=== PATIENT | female | born 1960 | race Caucasian/White ===

== ENCOUNTER 2017-08-22 17:10 | Emergency (ER) | payer BC, OTHER ==
[~2017-08-22] VITALS: Ht 172.7 cm; Wt 108.9 kg
[~2017-08-22 17:10] MED LIST: ASPI-630 PO; CLIN300C8 PO; FLUT16SP NS; MELO15TA23 PO; OMEP40CA5 PO; RAMI2.5C PO
[2017-08-22] MEDS ORDERED: IV NORMAL SALINE 1000ML BAG 1,000 ML IV SCH (19:13)
[2017-08-22] MEDS ORDERED: ONDANSETRON PF 4 MG/2 ML VIAL. IV ONE (19:15)
[2017-08-22 19:23] LABS: BILIRUBIN,URINE SMALL (NEG); GLUCOSE,URINE NEGATIVE (NEG); NITRITE,URINE NEGATIVE (NEG); PH,URINE 5.5; PROTEIN,URINE NEGATIVE (NEG-TRACE)
[2017-08-22 19:26] LABS: BASO # 0.1 x10^3/uL (0.0-0.2); BASO % 1 % (0-3); EOS % 5 % (0-3); HEMATOCRIT 43.9 % (36.0-47.0); LYMPH % 38 % (24-48); MEAN CORPUSCULAR HEMOGLOBIN 33 pg (25-35); MEAN CORPUSCULAR HGB CONC 34 g/dL (31-37); MEAN CORPUSCULAR VOLUME 95 fL (79-100); MONO % 9 % (0-9); NEUT % 48 % (31-73); PLATELET COUNT 263 x10^3/uL (140-400); RED BLOOD COUNT 4.61 x10^6/uL (3.50-5.40); RED CELL DISTRIBUTION WIDTH 13.5 % (11.5-14.5)
[2017-08-22 19:37] LABS: ANION GAP 10 (6-14); BLOOD UREA NITROGEN 19 mg/dL (7-20); CALCIUM 8.9 mg/dL (8.5-10.1); CARBON DIOXIDE 25 mmol/L (21-32); CHLORIDE 104 mmol/L (98-107); CREATININE 0.8 mg/dL (0.6-1.0); GFR 74.2; GLUCOSE 105 mg/dL (70-99); POTASSIUM 3.7 mmol/L (3.5-5.1); SODIUM 139 mmol/L (136-145)
[2017-08-22 19:42] LABS: ALBUMIN 3.7 g/dL (3.4-5.0); ALK PHOS 69 U/L (46-116); ALT (SGPT) 21 U/L (14-59); AST (SGOT) 15 U/L (15-37); DIRECT BILIRUBIN < 0.1 mg/dL (0.0-0.2); TOTAL BILIRUBIN 0.2 mg/dL (0.2-1.0); TOTAL PROTEIN 7.5 g/dL (6.4-8.2)
[2017-08-22 19:45] LABS: BACTERIA,URINE MODERATE /HPF (0-FEW); SQUAMOUS EPITHELIAL CELL,UR MANY /LPF
[2017-08-22] MEDS: HYDROmorphone 2 MG/ML VIAL IV/SQ PRN ×2 (20:05→21:29)
[2017-08-22] MEDS ORDERED: IOHEXOL 300 MG/ML 100ML VIAL. IV ONE (20:15)
[2017-08-22] MEDS ORDERED: CONTRAST GIVEN MC PRN (20:15)
--- NOTE | 2017-08-22 20:48 | PHYS DOC ---
Past Medical History Past Medical History: COPD, Hypertension, Other Additional Past Medical Histor: ULCERS, varicose veins, blood clots in june veins Past Surgical History: Tubal ligation, Other Additional Past Surgical Histo: varicose veins Alcohol Use: None Drug Use: None Adult General Chief Complaint Chief Complaint: ABDOMINAL PAIN HPI HPI 57-year-old female presenting the emergency department today with abdominal pain . She describes the pain as intermittent worse with movement throbbing aching pain that is been present for about 24-48 hours. It is so she with a little bit of nausea without any vomiting. It also radiates into her hip and buttocks. She denies any hematuria polyuria or dysuria. She denies fevers or chills at home. Review of systems is negative for chest pain shortness of breath fevers or chills. All other review of systems is negative unless otherwise noted in history of present illness. ED course: 57-year-old female presenting the emergency department today with abdominal pain. Patient is afebrile upon arrival. Saturating well with a normal heart rate. Pertinent physical exam findings:Soft nontender abdomen without rebound tenderness or guarding present. Negative McBurneys point. Negative Peña sign. No ecchymosis present. Otherwise the remainder the exam is unremarkable. Blood work obtained along with CT the abdomen pelvis which is unremarkable for acute pathology. IV fluids administered. The patient was then discharged home in stable condition to follow up with their primary care physician over the next 2-3 days. They were to return if their symptoms worsened or if they were concerned for any reason. [id number] discharge instructions and return precautions were given. Patient's questions were answered to their satisfaction. Patient is comfortable plan. Review of Systems Review of Systems SEE ABOVE. Current Medications Current Medications Current Medications Medications (Trade) Dose Ordered Sig/Ralph Start Time Stop Time Status Last Admin Dose Admin Hydromorphone HCl (Dilaudid) 0.5 mg PRN Q15MIN PRN 08/22/17 19:15 08/23/17 19:14 Info (Do NOT chart on this entry -- for MONITORING) 1 each PRN DAILY PRN 08/22/17 20:15 08/24/17 20:14 Iohexol (Omnipaque 300 Mg/ml) 75 ml 1X ONCE 08/22/17 20:15 08/22/17 20:16 DC 08/22/17 20:36 75 ML Ketorolac Tromethamine (Toradol) 30 mg 1X ONCE 08/22/17 21:00 08/22/17 21:01 DC Ondansetron HCl (Zofran) 4 mg 1X ONCE 08/22/17 19:15 08/22/17 19:17 DC 08/22/17 20:04 4 MG Sodium Chloride 1,000 ml @ 1,000 mls/hr Q1H 08/22/17 19:13 08/22/17 20:12 DC 08/22/17 20:03 1,000 MLS/HR Allergies Allergies Allergies Coded Allergies Type Severity Reaction Last Updated Verified Penicillins Allergy Mild Hives 02/14/14 Yes Physical Exam Physical Exam SEE ABOVE Constitutional: Well developed, well nourished, no acute distress, non-toxic appearance. [] HENT: Normocephalic, atraumatic, bilateral external ears normal, oropharynx moist, no oral exudates, nose normal. [] Eyes: PERRLA, EOMI, conjunctiva normal, no discharge. [] Neck: Normal range of motion, no tenderness, supple, no stridor. [] Cardiovascular:Heart rate regular rhythm, no murmur [] Lungs & Thorax: Bilateral breath sounds clear to auscultation [] Abdomen: Bowel sounds normal, soft, no tenderness, no masses, no pulsatile masses. [] Skin: Warm, dry, no erythema, no rash. [] Back: No tenderness, no CVA tenderness. [] Extremities: No tenderness, no cyanosis, no clubbing, ROM intact, no edema. [] Neurologic: Alert and oriented X 3, normal motor function, normal sensory function, no focal deficits noted. [] Psychologic: Affect normal, judgement normal, mood normal. [] Current Patient Data Vital Signs Vital Signs Date Time Temp Pulse Resp B/P (MAP) Pulse Ox O2 Delivery O2 Flow Rate FiO2 08/22/17 18:25 97.7 90 17 165/93 (117) 97 Room Air 97.7 Lab Values Laboratory Tests Test 08/22/17 18:30 08/22/17 19:15 08/22/17 20:06 Urine Collection Type Unknown Urine Color Stacia Urine Clarity Clear Urine pH 5.5 Urine Specific Fonda >=1.030 Urine Protein Negative mg/dL (NEG-TRACE) Urine Glucose (UA) Negative mg/dL (NEG) Urine Ketones (Stick) Trace mg/dL (NEG) Urine Blood Negative (NEG) Urine Nitrite Negative (NEG) Urine Bilirubin Small (NEG) Urine Urobilinogen Dipstick 1.0 mg/dL (0.2 mg/dL) Urine Leukocyte Esterase Negative (NEG) Urine RBC 11-20 /HPF (0-2) Urine WBC 1-4 /HPF (0-4) Urine Squamous Epithelial Cells Many /LPF Urine Bacteria Moderate /HPF (0-FEW) Urine Hyaline Casts Few /HPF Urine Mucus Marked /LPF White Blood Count 8.0 x10^3/uL (4.0-11.0) Red Blood Count 4.61 x10^6/uL (3.50-5.40) Hemoglobin 15.0 g/dL (12.0-15.5) Hematocrit 43.9 % (36.0-47.0) Mean Corpuscular Volume 95 fL (79-100) Mean Corpuscular Hemoglobin 33 pg (25-35) Mean Corpuscular Hemoglobin Concent 34 g/dL (31-37) Red Cell Distribution Width 13.5 % (11.5-14.5) Platelet Count 263 x10^3/uL (140-400) Neutrophils (%) (Auto) 48 % (31-73) Lymphocytes (%) (Auto) 38 % (24-48) Monocytes (%) (Auto) 9 % (0-9) Eosinophils (%) (Auto) 5 % (0-3) H Basophils (%) (Auto) 1 % (0-3) Neutrophils # (Auto) 3.8 x10^3uL (1.8-7.7) Lymphocytes # (Auto) 3.0 x10^3/uL (1.0-4.8) Monocytes # (Auto) 0.7 x10^3/uL (0.0-1.1) Eosinophils # (Auto) 0.4 x10^3/uL (0.0-0.7) Basophils # (Auto) 0.1 x10^3/uL (0.0-0.2) Sodium Level 139 mmol/L (136-145) Potassium Level 3.7 mmol/L (3.5-5.1) Chloride Level 104 mmol/L (98-107) Carbon Dioxide Level 25 mmol/L (21-32) Anion Gap 10 (6-14) Blood Urea Nitrogen 19 mg/dL (7-20) Creatinine 0.8 mg/dL (0.6-1.0) Estimated GFR (Cockcroft-Gault) 74.2 Glucose Level 105 mg/dL (70-99) H Calcium Level 8.9 mg/dL (8.5-10.1) Total Bilirubin 0.2 mg/dL (0.2-1.0) Direct Bilirubin < 0.1 mg/dL (0.0-0.2) Aspartate Amino Transferase (AST) 15 U/L (15-37) Alanine Aminotransferase (ALT) 21 U/L (14-59) Alkaline Phosphatase 69 U/L (46-116) Troponin I Quantitative < 0.017 ng/mL (0.000-0.055) Total Protein 7.5 g/dL (6.4-8.2) Albumin 3.7 g/dL (3.4-5.0) Lipase 98 U/L (73-393) Lactic Acid Level 0.6 mmol/L (0.4-2.0) Laboratory Tests 08/22/17 19:15 Laboratory Tests 08/22/17 19:15 EKG EKG [] Radiology/Procedures Radiology/Procedures [] Course & Med Decision Making Course & Med Decision Making Pertinent Labs and Imaging studies reviewed. (See chart for details) [] Dragon Disclaimer Dragon Disclaimer This electronic medical record was generated, in whole or in part, using a voice recognition dictation system. Departure Departure Impression: Primary Impression: Abdominal pain Disposition: HOME, SELF-CARE Condition: STABLE Referrals: FINA LARA MD (PCP) Additional Instructions: Thank you for allowing us to participate in your care today. Followup with your primary care physician in 3 days if your symptoms do not improve. Call your Primary Doctor tomorrow and inform them of your visit today. If you do not have a primary care provider you can ask for a list of our primary care providers. Return to the emergency department you have any new or concerning findings. This should be evaluated by the primary care physician and any necessary consulting services for continued management within a few days after discharge. Return to emergency room if you have any new or concerning symptoms including but not limited to fever, chills, nausea, vomiting, intractable pain, any new rashes, chest pain, shortness of air, uncontrolled bleeding, difficulty breathing, and/or vision loss. EVELINE BRADEN MD Aug 22, 2017 20:48
--- NOTE | 2017-08-22 20:57 | RAD ---
CT ABD PELV W/ IV CONTRST ONLY dated 08/22/2017 8:35 PM Indication:severe RLQ pain since Wednesday, Comparison: No comparison is available. Technique: Following injection of 75 mL of Omnipaque 300 IV, images were obtained through the abdomen and pelvis. No oral contrast was given. One or more of the following individualized dose reduction techniques were utilized for this examination: 1. Automated exposure control 2. Adjustment of the mA and/or kV according to patient size 3. Use of iterative reconstruction technique Findings: The liver has a prominent Davina's lobe. It is otherwise unremarkable. The spleen, pancreas, adrenal glands, and kidneys are normal in appearance. There is diverticulosis of the colon diffusely without associated inflammatory changes. There is no evidence of bowel obstruction. The appendix is normal. No free fluid or adenopathy is seen. The uterus is unremarkable. No pelvic mass is seen. IMPRESSION: There is diverticulosis of the colon diffusely without focal inflammatory changes to suggest diverticulitis. The study is otherwise unremarkable. The appendix is normal. Electronically signed by: Lucía Ba MD (08/22/2017 8:54 PM) [facility]
[2017-08-22] MEDS ORDERED: KETOROLAC 30 MG/ML INJ. IV ONE (21:00)
[2017-08-22 21:18] VITALS: BP 114/78
--- NOTE | 2017-08-23 06:41 | EKG ---
[facility] [address] [place] [address] Test Date: 2017-08-22 Test Time: 19:50:54 Pat Name: ROJAS NESBITT Department: Room: Gender: F Sample Steamer: : 1960 Requested By: EVELINE BRADEN Order Number: [id number] Reading MD: Jesus Urias MD Measurements Intervals [place] Rate: 73 P: -16 MO: 148 QRS: 26 QRSD: 88 T: 15 QT: 374 QTc: 416 Interpretive Statements SINUS RHYTHM Electronically Signed On 08-23-2017 10:27:55 [employer] MANAGER by Jesus Urias MD
== END 2017-08-22 21:33 | disposition home or self-care (01) ==
LOC: ER 17:10
DX: R10.31 Right lower quadrant pain (principal); R11.0 Nausea; J44.9 Chronic obstructive pulmonary disease, unspecified; I10 Essential (primary) hypertension; Z88.0 Allergy status to penicillin
CPT/HCPCS: 36415; 74177; 80048; 80076; 81001; 83605; 83690; 84484; 85025; 87086; 93005; 96361; 96374; 99285; J2405; J7030; Q9967

== ENCOUNTER 2017-08-28 11:23 | Emergency (ER) | payer OTHER ==
[~2017-08-28] VITALS: Ht 172.7 cm; Wt 104.3 kg
[2017-08-28 11:30] VITALS: BP 161/93
--- NOTE | 2017-08-28 11:42 | PHYS DOC ---
Past Medical History Past Medical History: COPD, Hypertension, Other Additional Past Medical Histor: ULCERS, varicose veins, blood clots in june veins Past Surgical History: Tubal ligation, Other Additional Past Surgical Histo: varicose veins Alcohol Use: None Drug Use: None Adult General Chief Complaint Chief Complaint: ABDOMINAL PAIN HPI HPI Patient is a 57 year old extremely pleasant, female who presents with right-sided hip/abdominal pain. She states his been going on for greater than 2 weeks. She was actually seen here last Wednesday and had a CT scan of her abdomen pelvis and blood work performed. CT scan showed diverticulosis without any other acute abnormalities. Her urine showed contamination. She was discharged home and told her nothing was wrong with the pain is been getting worse. She states is made worse when she bends over or tries to lift her right leg. She states the pain is in the posterior aspect of her hip and radiates around to the front of her hip. She states she can't sleep on her right side of her body and blood pressure on or hip. She states that she has to sleep on the left side or on her back. She was seen by her primary care physician on Wednesday and told to follow-up with GI doctor. She's been taking Tylenol without any relief. She is very upset because she felt like she didn't get very good treatment in the emergency department and does not want any blood work or x- rays done this time because she just had stuff done a week ago and on Wednesday her primary care's office. She denies any dysuria, she denies any abdominal pain , she denies any fevers chills nausea or vomiting. Review of Systems Review of Systems Constitutional: Denies fever or chills [] Eyes: Denies change in visual acuity, redness, or eye pain [] HENT: Denies nasal congestion or sore throat [] Respiratory: Denies cough or shortness of breath [] Cardiovascular: No additional information not addressed in HPI [] GI: Denies abdominal pain, nausea, vomiting, bloody stools or diarrhea [] : Denies dysuria or hematuria [] Musculoskeletal: Denies back pain, positive for right hip pain Integument: Denies rash or skin lesions [] Neurologic: Denies headache, focal weakness or sensory changes [] Endocrine: Denies polyuria or polydipsia [] All other systems were reviewed and found to be within normal limits, except as documented in this note. Allergies Allergies Allergies Coded Allergies Type Severity Reaction Last Updated Verified Penicillins Allergy Mild Hives 02/14/14 Yes Physical Exam Physical Exam Constitutional: Well developed, well nourished, no acute distress, non-toxic appearance. [] HENT: Normocephalic, atraumatic, bilateral external ears normal, oropharynx moist, no oral exudates, nose normal. [] Eyes: PERRLA, EOMI, conjunctiva normal, no discharge. [] Neck: Normal range of motion, no tenderness, supple, no stridor. [] Cardiovascular:Heart rate regular rhythm, no murmur [] Lungs & Thorax: Bilateral breath sounds clear to auscultation [] Abdomen: Bowel sounds normal, soft, no abdominal tenderness, no masses, no pulsatile masses. [] Skin: Warm, dry, no erythema, no rash. [] Back: No midline back tenderness, no CVA tenderness. [] Extremities: Tender palpation on the right posterior buttocks, pain increases with flexion of hip on the right side, no cyanosis, no clubbing, ROM intact, no edema. [] Neurologic: Alert and oriented X 3, normal motor function, normal sensory function, no focal deficits noted. [] Psychologic: Affect normal, judgement normal, mood normal. [] Current Patient Data Vital Signs Vital Signs Date Time Temp Pulse Resp B/P (MAP) Pulse Ox O2 Delivery O2 Flow Rate FiO2 08/28/17 11:30 97.9 91 20 161/93 (115) 98 Room Air 97.9 EKG EKG [] Radiology/Procedures Radiology/Procedures [] Impressions: Muscle pain on the right hip Course & Med Decision Making Course & Med Decision Making Pertinent Labs and Imaging studies reviewed. (See chart for details) She does not want any lab work or x-rays performed. Her exam is consistent with muscle spasm of her hip extensors. At this point we talked about adding Flexeril and trying it every 8 hours or prior to going to bed and watching for side effects such as sleepiness and excessive tiredness. I've told her she can take it less frequently than every 8 hours or break the tablets in half in order to reduce the side effects. Patient states she is willing to try this and a prescription for 10 mg every 8 hours #30 of Flexeril was written the patient is being discharged. She is instructed to return back to ER follow-up with primary care physician if her symptoms get worse or do not improve. The CT scan did not show any acute abnormalities of her hip or inside her right lower quadrant. I suspect for symptoms get worse or do not improve that perhaps in the future she could repeat the CAT scan or dedicated films of her right hip. Dragon Disclaimer Dragon Disclaimer This electronic medical record was generated, in whole or in part, using a voice recognition dictation system. Departure Departure Impression: Primary Impression: Hip pain Disposition: HOME, SELF-CARE Condition: STABLE Referrals: FINA LARA MD (PCP) Patient Instructions: Muscle Strain Additional Instructions: You were seen in the emergency department and you likely have a muscle spasm in your right hip that's causing your discomfort. You can try Flexeril as we discussed. It can make you sleepy so avoid alcohol and other medicines that can add to the sleepiness. Please don't drive your car while taking these medicines. If it makes her too sleepy you can take it prior to going to bed or cut the tablets in half. If you develop worsening pain, fevers, or other concerns please return back to emergency department or follow-up to primary care physician. Scripts Cyclobenzaprine Hcl (CYCLOBENZAPRINE HCL) 10 Mg Tablet 1 TAB PO TID Y for MUSCLE SPASMS, #30 TAB Prov: KASSIDY RAYMOND MD 08/28/17 KASSIDY RAYMOND MD Aug 28, 2017 11:42
[2017-08-28] MEDS ORDERED: CYCL10TA2 PO (12:35)
== END 2017-08-28 12:40 | disposition home or self-care (01) ==
LOC: ER 11:23
DX: M25.551 Pain in right hip (principal); R10.9 Unspecified abdominal pain; J44.9 Chronic obstructive pulmonary disease, unspecified; I10 Essential (primary) hypertension; Z88.0 Allergy status to penicillin
CPT/HCPCS: 99283

== ENCOUNTER → 2017-09-08 | Outpatient (CLI) | payer OTHER ==
[2017-08-28 11:30] VITALS: BP 161/93
[~2017-09-08] MED LIST changes: +CYCL10TA2 PO
--- NOTE | 2017-09-08 15:47 | KCIC ---
EXAM: Right hip, 2 views. HISTORY: Pain. COMPARISON: None. FINDINGS: Frontal and frog-leg views of the right hip are obtained. There is no fracture, dislocation or subluxation. IMPRESSION: No acute osseous finding. Electronically signed by: Izabela May MD (09/08/2017 2:27 PM) [facility]
== END | disposition home or self-care (01) ==
LOC: KCIC 14:08
PROVIDERS: ATTEND Family Medicine
DX: M25.551 Pain in right hip (principal)
CPT/HCPCS: 73502

== ENCOUNTER → 2017-09-10 | Outpatient (CLI) | payer OTHER ==
[2017-08-28 11:30] VITALS: BP 161/93
--- NOTE | 2017-09-10 18:05 | KCIC ---
Bilateral digital screening mammograms: Reason for examination: Routine screening. Comparison is made to previous studies dated 09/09/2016 and 10/01/2012. Interpretation is made with the benefit of CAD. The skin and nipples show no abnormalities. No abnormal lymph nodes are seen. The breast parenchyma is predominantly fatty. (Breast density: Category A.) There are no dominant masses, suspicious calcifications or architectural distortions. A few benign-appearing calcifications are seen. Impression: No evidence of malignancy. Recommend routine screening. BI-RADS Category 2: Benign. "Our facility is accredited by the [employer] Mammography Program." This patient's information has been entered into a reminder system for the patient to be notified with the results of her examination and a target date for the next mammogram. Electronically signed by: Stacy Juárez MD (09/10/2017 6:02 PM) [id number]
== END | disposition home or self-care (01) ==
LOC: KCIC MAMMO 08:52
PROVIDERS: ATTEND Family Medicine
DX: Z12.31 Encounter for screening mammogram for malignant neoplasm of breast (principal)
CPT/HCPCS: G0202; 77067

== ENCOUNTER → 2017-09-15 | Outpatient (CLI) | payer OTHER ==
[2017-08-28 11:30] VITALS: BP 161/93
--- NOTE | 2017-09-15 11:16 | KCIC ---
Indication: Right lower quadrant abdominal pain. Study is limited due to patient large body habitus. The pancreas and aorta were poorly visualized. The liver is normal in size. No discrete liver mass is detected. The gallbladder is without stones or sludge. No wall thickening or biliary ductal dilatation is seen. The spleen and left kidney was very poorly visualized. The right kidney is unremarkable. There is no ascites. IMPRESSION: Limited study, as described. No gross abnormality is detected. Electronically signed by: Peewee Ponce MD (09/15/2017 11:13 AM) [id number]
== END | disposition home or self-care (01) ==
LOC: KCIC US 09:38
PROVIDERS: ATTEND Family Medicine
DX: R10.31 Right lower quadrant pain (principal)
CPT/HCPCS: 76700

== ENCOUNTER → 2018-11-15 | Outpatient (CLI) | payer OTHER ==
[~2018-11-15] MED LIST changes: -RAMI2.5C PO; +RAMI2.5C2 PO
--- NOTE | 2018-11-15 11:35 | KCIC ---
MRI of the lumbar spine without contrast 11/15/2018 CLINICAL HISTORY: Chronic low back pain with bilateral leg numbness and weakness. TECHNIQUE: Unenhanced T1-weighted, T2-weighted and inversion recovery sagittal and T1-weighted and T2-weighted axial images of the lumbar spine were obtained. FINDINGS: Comparison study is dated 02/17/2016. Minimal S-shaped curvature of the thoracolumbar spine is seen. Degenerative signal changes are seen involving the L3-4, L4-5 and L5-S1 discs. The marrow signal of the visualized bony structures is within normal limits. The conus medullaris is within normal limits in morphology, position, and signal characteristics. At the L1-2 and L2-3 disc spaces there are minimal generalized disc bulges. Degenerative changes are seen involving the facet joints bilaterally. There is mild ligamentum flavum hypertrophy bilaterally. These findings do not result in significant central spinal canal or neural foraminal stenosis. At the L3-4 disc space there is a mild generalized disc bulge. Degenerative changes are seen involving the facet joints bilaterally. There are small facet joint effusions. Mild to moderate ligamentum flavum hypertrophy bilaterally. There is prominence of the posterior epidural fat. These findings when combined do not result in significant central spinal canal or neural foraminal stenosis. At the L4-5 disc space there is a mild to moderate generalized disc bulge. Degenerative changes are seen involving the facet joints bilaterally. There is moderate ligamentum flavum hypertrophy bilaterally. There are small facet joint effusions, left greater than right. These findings when combined result in mild central spinal canal stenosis. No neural foraminal stenosis is seen. At the L5-S1 disc space there is a mild to moderate generalized disc bulge. This is eccentric to the right. Degenerative changes are seen involving the facet joints bilaterally. There is mild ligamentum flavum hypertrophy bilaterally. These findings when combined do not result in significant central spinal canal or neural foraminal stenosis. Since the previous examination there has been no significant interval change. IMPRESSION: The changes of degenerative disc disease are seen throughout the lumbar spine. These findings result in mild central spinal canal stenosis at L4-5. No neural foraminal stenosis is seen. Electronically signed by: Jam Sood MD (11/15/2018 11:30 AM) [facility]
== END | disposition home or self-care (01) ==
LOC: KCIC MRI 09:59
PROVIDERS: ATTEND Family Medicine
DX: M48.062 Spinal stenosis, lumbar region with neurogenic claudication (principal); M51.36 Other intervertebral disc degeneration, lumbar region; M25.48 Effusion, other site
CPT/HCPCS: 72148

== ENCOUNTER → 2019-01-10 | Outpatient (CLI) | payer OTHER ==
[~2019-01-10] MED LIST changes: +ALBUTEROL SULFATE 2.5 MG/3 ML NEBU. NEB ONE; +HYDR-3164 PO
--- NOTE | 2019-01-10 12:55 | RAD ---
EXAM: Left knee, 2 views. HISTORY: Pain and numbness. COMPARISON: MRI dated 02/24/2012. FINDINGS: 2 views the left knee are obtained. There is lateral compartment joint space narrowing with subchondral sclerosis and marginal spurring. There is [id number] patellar spurring. There is a small joint effusion. There is suspected genu valgus. There are lower extremity varicose veins. IMPRESSION: 1. Moderate to severe lateral and mild to moderate patellofemoral compartment osteoarthritis of the left knee. 2. Left genu valgus. 3. Small joint effusion. Electronically signed by: Izabela May MD (01/10/2019 12:53 PM) [id number]
== END | disposition home or self-care (01) ==
LOC: PF 09:34
PROVIDERS: ATTEND Surgery
DX: M17.12 Unilateral primary osteoarthritis, left knee (principal); M21.062 Valgus deformity, not elsewhere classified, left knee; M25.462 Effusion, left knee; I83.92 Asymptomatic varicose veins of left lower extremity; J44.9 Chronic obstructive pulmonary disease, unspecified; F17.210 Nicotine dependence, cigarettes, uncomplicated
CPT/HCPCS: 73560; 94060; J7613

== ENCOUNTER 2019-01-25 20:34 | Emergency (ER) | payer OTHER ==
[~2019-01-25] VITALS: Ht 170.2 cm; Wt 104.3 kg
[~2019-01-25 20:34] MED LIST changes: -ALBUTEROL SULFATE 2.5 MG/3 ML NEBU. NEB ONE; -HYDR-3164 PO
[2019-01-25 21:13] VITALS: BP 171/104
--- NOTE | 2019-01-25 21:55 | PHYS DOC ---
Past Medical History Past Medical History: COPD, Hypertension, Other Additional Past Medical Histor: ULCERS, varicose veins, blood clots in june veins (DAYTON SEGURA) Past Surgical History: Tubal ligation, Other Additional Past Surgical Histo: varicose veins (DAYTON SEGURA) Alcohol Use: None Drug Use: None (DAYTON SEGURA) Adult General Chief Complaint Chief Complaint: LOWER EXT PAIN HPI HPI Patient is a 58 year old with a history of varicose veins and DVT presents to the ED complaining of bilateral calf pain 1 week. Patient states she has a history of chronic back pain as well. Complains of right hip pain that is new. Describes the pain as sharp. Rates the pain as 6 out of 10. Pain radiates from back down to her legs. Patient walks with a cane per her normal. Is currently being seen and worked up outpatient by her PCP. States she has been taking tylenol at home. Denies recent injury, fever, abdominal pain, dysuria, hematuria , chest pain, shortness of breath, paresthesias, weakness, bowel/bladder changes or saddle anesthesia. (DAYTON SEGURA) Review of Systems Review of Systems Constitutional: Denies fever or chills [] Eyes: Denies change in visual acuity, redness, or eye pain [] HENT: Denies nasal congestion or sore throat [] Respiratory: Denies cough or shortness of breath [] Cardiovascular: No additional information not addressed in HPI [] GI: Denies abdominal pain, nausea, vomiting, bloody stools or diarrhea [] : Denies dysuria or hematuria [] Musculoskeletal: Complains of back and leg pain. Integument: Denies rash or skin lesions [] Neurologic: Denies headache, focal weakness or sensory changes [] All other systems were reviewed and found to be within normal limits, except as documented in this note. (DAYTON SEGURA) Current Medications Current Medications Current Medications Medications (Trade) Dose Ordered Sig/Ralph Start Time Stop Time Status Last Admin Dose Admin Acetaminophen/ Hydrocodone Bitart (Lortab 10/325) 1 tab 1X ONCE 01/25/19 22:00 01/25/19 22:01 DC Ondansetron HCl (Zofran Odt) 4 mg 1X ONCE 01/25/19 22:00 01/25/19 22:01 DC (ILIR PUCKETT MD) Allergies Allergies Allergies Coded Allergies Type Severity Reaction Last Updated Verified Penicillins Allergy Mild Hives 02/14/14 Yes (ILIR PUCKETT MD) Physical Exam Physical Exam Constitutional: Well developed, well nourished, no acute distress, non-toxic appearance. [] HENT: Normocephalic, atraumatic Neck: Normal range of motion, no tenderness, supple, no stridor. [] Cardiovascular:Heart rate regular rhythm, no murmur [] Lungs & Thorax: Bilateral breath sounds clear to auscultation [] Abdomen: Bowel sounds normal, soft, no tenderness, no masses, no pulsatile masses. [] Skin: Warm, dry, no erythema, no rash. [] Back: mild lumbar paraspinal tenderness, FROM. NV intact. No overlying skin changes. no CVA tenderness. [] Extremities: mild bilateral calf swelling and chronic varicose veins. FROM. mild right lateral hip tenderness, no cyanosis, no clubbing, ROM intact, no edema. [] Neurologic: Alert and oriented X 3, normal motor function, normal sensory function, no focal deficits noted. [] Psychologic: Affect normal, judgement normal, mood normal. [] (DAYTON SEGURA) Current Patient Data Vital Signs Vital Signs Date Time Temp Pulse Resp B/P (MAP) Pulse Ox O2 Delivery O2 Flow Rate FiO2 01/25/19 21:13 97.8 89 18 171/104 (126) 97 Room Air 97.8 (ILIR PUCKETT MD) EKG EKG [] (DAYTON SEGURA) Radiology/Procedures Radiology/Procedures PROCEDURE: VENOUS LOWER EXT BILATERAL Bilateral lower extremity venous Doppler: Reason for examination: Bilateral numbness right greater than left. Right hip pain. Bilateral greater saphenous veins stripped due to varicose veins. The right and left lower extremity venous systems were evaluated from the common femoral veins distally to the calf veins with grayscale imaging, color-flow imaging and spectral analysis. There appears to be normal blood flow without deep venous thrombosis. There is normal response of the venous systems to compression and augmentation. IMPRESSION: No deep venous thrombosis in the right or left lower extremity.[] CT lumbar spine without contrast: Reason for examination: low back pain and bilateral leg pain. Helical images were obtained through the lumbar spine with no contrast administered. Reconstruction was performed in sagittal and coronal planes. Exposure: One or more of the following individualized dose reduction techniques were utilized for this examination: 1. Automated exposure control 2. Adjustment of the mA and/or kV according to patient size 3. Use of iterative reconstruction technique. The vertebral bodies of the lumbar spine are normally aligned anteriorly and posteriorly. No acute fracture or subluxation is seen. Posterior elements appear to be intact. There are degenerative facet changes with vacuum phenomena at the L3-4 and L4-5 levels bilaterally. The intervertebral discs at the T12-L1, L1-2, L2-3 levels show no significant loss of disc height or disc bulge and there is no spinal stenosis. At the L2-3-4 disc level, there is broad-based disc bulging slightly asymmetric to the left which together with the ligamentum flavum hypertrophy and facet hypertrophy does appear to cause some mild stenosis of the spinal canal. There is no neural foraminal stenosis. At the L4-5 disc level, there is again broad-based disc bulging and again there is facet hypertrophy and ligamentum flavum hypertrophy causing mild central stenosis but there is bilateral lateral recess stenosis and some mild lateral recess stenosis. At the L5-S1 disc level there is some broadbase disc bulging but no evidence of significant stenosis of the spinal canal or neural foramen. No acute abnormality seen at the sacrum there is vacuum phenomena at the left sacroiliac joint. No abnormality seen at the right sacroiliac joint. IMPRESSION: Degenerative spondylosis at the L3-4, L4-5 and L5-S1 levels with broad-based disc bulging which together with ligamentum flavum hypertrophy and facet hypertrophy causes central stenosis central stenosis at the L3-4 and L4-5 levels and mild neural foraminal stenosis at the L4-5 level. (DAYTON SEGURA) Course & Med Decision Making Course & Med Decision Making Pertinent Labs and Imaging studies reviewed. (See chart for details) []Discussed imaging findings with patient. Patient's pain improved in the ED. Patient able to ambulate with a cane per her normal. No focal neuro deficits. Patient has follow-up with her PCP. Patient offered analgesics in the ED but refused since she is driving. Took tylenol at home. Patient plans to follow-up with her PCP this week. Recommended vascular surgeon for varicose veins and orthopedics for her back pain. Discussed reasons to return to the ED. Patient understands and agrees with plan. (DAYTON SEGURA) Course & Med Decision Making Staff Physician Addendum: I was working in the ER during the course of this patient's visit. I was available for consultation as needed, but I was not directly involved in the care of this patient. (ILIR PUCKETT MD) Dragon Disclaimer Dragon Disclaimer This electronic medical record was generated, in whole or in part, using a voice recognition dictation system. (DAYTON SEGURA) Departure Departure Impression: Primary Impression: Spondylosis Additional Impressions: Degenerative disc disease Varicose veins of both lower extremities Disposition: 01 HOME, SELF-CARE Condition: STABLE Referrals: FINA LARA MD (PCP) Patient Instructions: Degenerative Disk Disease, Spondylolysis with Rehab- [facility], Varicose Veins Scripts Hydrocodone/Apap 5-325 (NORCO 5-325 TABLET) 1 Each Tablet 1 TAB PO BID for 5 Days, #10 TAB Prov: DAYTON SEGURA 01/26/19 Problem Qualifiers DAYTON SEGURA Jan 25, 2019 21:55 ILIR PUCKETT MD Jan 29, 2019 21:35
[2019-01-25] MEDS ORDERED: HYDROcodone/APAP 10/325 1 TAB TABLET PO ONE (22:00)
[2019-01-25] MEDS ORDERED: ONDANSETRON ODT 4 MG TAB.RAPDIS. PO ONE (22:00)
--- NOTE | 2019-01-25 23:42 | RAD ---
Bilateral lower extremity venous Doppler: Reason for examination: Bilateral numbness right greater than left. Right hip pain. Bilateral greater saphenous veins stripped due to varicose veins. The right and left lower extremity venous systems were evaluated from the common femoral veins distally to the calf veins with grayscale imaging, color-flow imaging and spectral analysis. There appears to be normal blood flow without deep venous thrombosis. There is normal response of the venous systems to compression and augmentation. IMPRESSION: No deep venous thrombosis in the right or left lower extremity. Electronically signed by: Stacy Juárez MD (01/25/2019 11:39 PM) [facility]
--- NOTE | 2019-01-25 23:53 | RAD ---
CT lumbar spine without contrast: Reason for examination: low back pain and bilateral leg pain. Helical images were obtained through the lumbar spine with no contrast administered. Reconstruction was performed in sagittal and coronal planes. Exposure: One or more of the following individualized dose reduction techniques were utilized for this examination: 1. Automated exposure control 2. Adjustment of the mA and/or kV according to patient size 3. Use of iterative reconstruction technique. The vertebral bodies of the lumbar spine are normally aligned anteriorly and posteriorly. No acute fracture or subluxation is seen. Posterior elements appear to be intact. There are degenerative facet changes with vacuum phenomena at the L3-4 and L4-5 levels bilaterally. The intervertebral discs at the T12-L1, L1-2, L2-3 levels show no significant loss of disc height or disc bulge and there is no spinal stenosis. At the L2-3-4 disc level, there is broad-based disc bulging slightly asymmetric to the left which together with the ligamentum flavum hypertrophy and facet hypertrophy does appear to cause some mild stenosis of the spinal canal. There is no neural foraminal stenosis. At the L4-5 disc level, there is again broad-based disc bulging and again there is facet hypertrophy and ligamentum flavum hypertrophy causing mild central stenosis but there is bilateral lateral recess stenosis and some mild lateral recess stenosis. At the L5-S1 disc level there is some broadbase disc bulging but no evidence of significant stenosis of the spinal canal or neural foramen. No acute abnormality seen at the sacrum there is vacuum phenomena at the left sacroiliac joint. No abnormality seen at the right sacroiliac joint. IMPRESSION: Degenerative spondylosis at the L3-4, L4-5 and L5-S1 levels with broad-based disc bulging which together with ligamentum flavum hypertrophy and facet hypertrophy causes central stenosis central stenosis at the L3-4 and L4-5 levels and mild neural foraminal stenosis at the L4-5 level. Electronically signed by: Stacy Juárez MD (01/25/2019 11:50 PM) [facility]
[2019-01-26] MEDS ORDERED: HYDR-3164 PO (00:01)
--- NOTE | 2019-01-26 08:33 | RAD ---
HIP RIGHT 2V WITH PELVIS History: Right hip pain for last 2-3 days getting worse, no known injury Comparison: Right hip radiographs September 08, 2017 Findings: AP view of the pelvis and 2 additional views of the right hip are submitted. No acute fracture or dislocation is identified by radiographs. There is some degenerative change of the pubic symphysis. Hip joint spaces are relatively maintained. There is spina bifida occulta S1. Small calcifications of the pelvis are more likely due to phleboliths. Impression: 1. No acute osseous abnormality is identified by radiographs. Electronically signed by: Matthew King MD (01/26/2019 8:30 AM) [id number]
== END 2019-01-26 00:28 | disposition home or self-care (01) ==
LOC: ER 20:34
DX: I83.93 Asymptomatic varicose veins of bilateral lower extremities (principal); M47.817 Spondylosis without myelopathy or radiculopathy, lumbosacral region; Z88.0 Allergy status to penicillin; M25.551 Pain in right hip; Q05.8 Sacral spina bifida without hydrocephalus; I10 Essential (primary) hypertension; J44.9 Chronic obstructive pulmonary disease, unspecified; Z98.51 Tubal ligation status; G89.29 Other chronic pain
CPT/HCPCS: 72131; 73502; 93970; 99284-25

== ENCOUNTER → 2019-02-14 | Outpatient (CLI) | payer OTHER ==
[2019-01-25 21:13] VITALS: BP 171/104
[~2019-02-14] MED LIST changes: +HYDR-3164 PO
--- NOTE | 2019-02-14 21:16 | PAIN ---
DATE OF SERVICE: 02/14/2019 INITIAL CONSULTATION FOR PAIN CLINIC CHIEF COMPLAINT: Low back, bilateral lower extremity pain. HISTORY OF PRESENT ILLNESS: The patient is a 58-year-old female who presents with history of pain in the low back, bilateral lower extremities for about 3 years now. 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 The patient reports it is worse over the past 3 weeks. She cannot sit, stand or walk with any comfort. Her balance is off. She has numbness in both of her legs across the low back, right worse than left, radiating in the right posterior gluteus, posterior lateral thigh, lateral anterior thigh, posterior calf, posterior ankle and foot bilaterally with some numbness. The patient reported it as constant, sharp, stabbing, throbbing, shooting, radiating, tingling, worse with activity, burning, cramping, aching, cold sensation as well, worse with standing, walking, changing positions, bending and any type of rotational motion of the low back as well. The patient reports it awakens her constantly from sleep, she tosses and turns all night, it affects her bowel and bladder control, but no incontinence. She reports she is having difficulty walking. She is using a walker and a cane. She has a cane with her today, which she holds in her left hand. The patient rates her disability rating from 0 to 10, 10 being the worst, is a 10 in all categories, except for self-care which is a 9, 10 with life support activities, sexual behavior, occupation, social activity, family and home responsibilities and recreational activity. The patient did have both MRI and a CT scan of the lumbar spine showing degenerative spondylosis L3-L4, L4-L5 and L5-S1 with moderate generalized disk bulge at L4-L5 and L3-L4 as well as L5-S1, one at L5-S1 is eccentric to the right without significant central spinal or neural foraminal stenosis at each level with some bilateral lateral recess stenosis at L4-L5 and vacuum phenomenon at the left sacroiliac joint L5-S1 as well, but no significant stenosis of the spinal canal or neural foramen at L5-S1 and L3-L4 level shows a broad-based disk bulge asymmetric to the left causing some mild stenosis of the spinal canal at that level. The patient reports no complete loss of motor function, but significant fatigability, especially the right leg compared to the left and pain in the low back making it very difficult to do any of her work activities. The patient has tried Tylenol as well as ibuprofen; however, has some gastritis, which she has been told not to take nonsteroidal anti-inflammatories. She has had physical therapies in the past, chiropractic treatment as well, is doing exercise currently which she learned from those modalities, but may be doing stretching on her own at this time daily. 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 PAST MEDICAL HISTORY: Significant for gastroesophageal reflux, hypertension, hearing loss, arthritis, history of gastric ulcers, gastritis. PREVIOUS SURGERY: Include tubal ligation and a vein stripping superior. CURRENT MEDICATIONS: Include ramipril, omeprazole, Tylenol, meloxicam. ALLERGIES: THE PATIENT IS ALLERGIC TO PENICILLIN, Z-GIANCARLO CAUSED HIVES WELL. FAMILY HISTORY: Significant for no major medical problems that she is aware of. SOCIAL HISTORY: The patient does not drink alcohol. Does smoke cigarettes about 1 pack a day for the past 40 years and continues to smoke. Does not use any illegal, illicit or recreational drugs. She is and lives with her spouse, lives locally in [place], [place]. REVIEW OF SYSTEMS: The patient's review of systems is positive for those items mentioned in history of present illness. All systems reviewed and otherwise negative. It is complete, full and well documented on the patient's chart. PHYSICAL EXAMINATION: VITAL SIGNS: Blood pressure 137/96, pulse 83, respirations 18, temperature 98.1 degrees Fahrenheit. Height is 5 feet 6 inches, weight is 231 pounds. GENERAL: The patient is awake, alert, oriented, appropriate, very pleasant demeanor. HEENT: Head shows normocephalic, atraumatic. Extraocular movements intact and symmetrical. The patient wears eye glasses. Oral cavity: Mucous membranes moist and pink. Dentition is intact. NECK: Shows anterior throat supple without palpable lymphadenopathy noted. Swallow reflex symmetrical. CHEST: Shows normal on inspection. Breath sounds clear to auscultation bilaterally. HEART: Shows S1, S2 clear. No murmurs auscultated. ABDOMEN: Soft, nontender, nondistended. No palpable organomegaly is noted. No rebound or guarding demonstrated. BACK: Shows spine grossly in the midline. Normal appearing thoracic kyphosis, some minor flattening of lumbar lordotic curvature. Lumbar paraspinous muscle shows symmetrical on inspection. On palpation shows some moderate tenderness diffusely throughout the upper, middle and lower distribution of paraspinous muscles, mostly in the lower distribution, however, with the main pain generated without specific trigger points and without specific radiation. The patient has good rotational motion of lumbar spine, both laterally greater than 10 degrees right and left as well as extension greater than 10 degrees, forward flexion 45 degrees without significant pain reported. EXTREMITIES: The patient's lower extremities show deep tendon reflexes at 1+ in the patellar and tendo calcaneus tendons are equal. Motor exam is approximately 4 on a scale of 5 with dorsiflexion, extension, but equal and symmetrical as is quadriceps and hamstring flexion bilaterally, 4/5 and equal. Peripheral pulses are 1+ posterior tibia. No peripheral edema is noted. The patient's straight leg raise noted to be positive on the right about 30 degrees, negative on the left, decreased with knee flexion on the right. Gaenslen's and Corey's maneuvers are negative bilaterally. The patient's lower extremities are warm and dry to touch, equal in color and appearance. Peripheral pulses are 1+. No peripheral edema is noted bilaterally. The patient's skin shows warm and dry, good turgor. No edema. No sores, rashes or bruising throughout. The patient is able to stand, has significant difficulty getting up from seated position. She is using both the arms on the chair and a cane in her left hand again to ambulate, walks with a very slow shuffling deliberate gait with a limp favoring the right lower extremity as well. IMPRESSION: 1. This is a 58-year-old female with approximate 3-year history of low back, bilateral lower extremity pain in a radicular fashion following L5-S1 dermatomal distribution, worse on the right than the left. 2. MRI and CT scans as noted. 3. Arthritis. 4. Hypertension. 5. Cigarette smoking. 6. Gastric ulcers with gastritis and gastroesophageal reflux disease. PLAN: Options were discussed with the patient including conservative medical management, continued physical therapy, interventional techniques and she is doing therapy on her own, doing stretching exercises daily, trying to walk. She would like to investigate interventional techniques. We discussed a lumbar epidural steroid injection using description as well as anatomical models to describe the procedure. The patient would like to pursue this. We will wait for preauthorization from her insurance provider. In the meantime, the patient will try Medrol Dosepak, given instruction as well as side effects to be aware of with the medication and she will follow up once preauthorization is obtained for a translaminar L5-S1 level lumbar epidural steroid injection at that time for L5-S1 radiculopathy, again greater on the right than the left. MAKENZIE LEE MD DR: SHELLEY/nts JOB#: [id number] / [id number] Dylan Moreno MD
== END | disposition home or self-care (01) ==
LOC: PNCL 08:44
PROVIDERS: ATTEND Anesthesiology
DX: M54.9 Dorsalgia, unspecified (principal); M79.605 Pain in left leg; M79.604 Pain in right leg; K21.9 Gastro-esophageal reflux disease without esophagitis; I10 Essential (primary) hypertension; M19.90 Unspecified osteoarthritis, unspecified site; K25.9 Gastric ulcer, unspecified as acute or chronic, without hemorrhage or perforation; F17.210 Nicotine dependence, cigarettes, uncomplicated; Z88.0 Allergy status to penicillin
CPT/HCPCS: G0463

== ENCOUNTER → 2019-02-28 | Outpatient (CLI) | payer OTHER ==
[~2019-02-28] MED LIST changes: +IOHEXOL 180 MG/ML 10 ML VIAL. ONE; +methylPREDNISolone ACETATE 40 MG/ML VIAL. ONE; +methylPREDNISolone ACETATE 80 MG/ML VIAL. ONE
--- NOTE | 2019-02-28 14:20 | PAIN ---
DATE OF SERVICE: 02/28/2019 DIAGNOSES: Lumbar radiculopathy with lumbar degenerative disk disease and lumbar spinal stenosis. HISTORY OF PRESENT ILLNESS: The patient is a 58-year-old female who returns for followup status post initial evaluation and preauthorization for lumbar epidural steroid injection. The patient reports still significant pain in the low back, right lower extremity radiating to the posterior gluteus, posterior thigh, posterior calf, into the foot. The patient reports it is still aching, sharp, tight describes it as tingling and burning in the leg with cramping in the back, stabbing, becoming more constant and severe, worse with walking, standing, changing positions and better sitting or lying down, but it is awakening her from sleep at night still. The patient reports a nonstop ache in the right leg. The patient reports as worst on a scale of 0-10 is 10 over the last week, 9 on average and 7 at its least and is a 9 today. The patient reports no new motor or sensory deficits. No new bowel or bladder incontinence but still significant pain in the low back and right leg. PHYSICAL EXAMINATION: VITAL SIGNS: The patient's blood pressure is 149/103, pulse is 81, respirations 18, temperature is 98.1 Fahrenheit. Height is 5 feet 6 inches, weight is 234 pounds. GENERAL: The patient is awake, alert and oriented, appropriate, very pleasant demeanor. HEENT: Shows normocephalic, atraumatic. Extraocular movements are intact and symmetrical. Oral cavity, mucous membranes are moist and pink. Dentition is intact. NECK: Shows anterior throat supple without palpable lymphadenopathy noted. Swallow reflex is symmetrical. CHEST: Shows normal on inspection. Breath sounds clear to auscultation bilaterally. HEART: Shows S1, S2 clear. No murmurs auscultated. ABDOMEN: Soft, nontender, nondistended. No palpable organomegaly is noted. No rebound or guarding demonstrated. BACK: Shows spine grossly in the midline. Normal appearing thoracic kyphosis and lumbar lordotic curvature. Lumbar paraspinous musculature shows symmetrical on inspection, on palpation shows some moderate tenderness diffusely bilaterally, but only diffusely without significant radiation. EXTREMITIES: The patient's lower extremities showed deep tendon reflexes at 1+ in patellar and tendo-calcaneus tendons. Motor exam is approximately 4 on a scale of 5 but equal and symmetrical with dorsiflexion, extension, quadriceps and hamstring flexion. Peripheral pulses are 1+ posterior tibial. No peripheral edema is noted bilaterally. Options were discussed with the patient. The patient's old chart was reviewed as her current medication regimen and updated. Current review of systems is updated today as well. We will proceed with a lumbar epidural steroid injection, the first in the series with fluoroscopic guidance. Risks were again discussed including, but not limited to bleeding, infection, possible need of epidural hematoma, subsequent neurological compromise, dural puncture, headaches, spinal cord and/or nerve damage, side effects of steroid medication and poor results regarding pain control. The patient understands and wished to proceed. The patient will return to clinic in approximately two weeks for followup. She was counseled as to return appointment, activity level and side effects to be aware of. DIAGNOSES: Lumbar radiculopathy with lumbar degenerative disk disease and lumbar spinal stenosis. PROCEDURE: Lumbar epidural steroid injection, translaminar approach at L5-S1 level using C-arm fluoroscopic guidance under sterile prep and drape using local anesthetic. MEDICATION INJECTED: A total of 120 mg Depo-Medrol plus 10 mL of preservative-free normal saline and 2 mL of contrast. CONDITION AT DISCHARGE: Stable. The patient tolerated the procedure well, had no complications. MAKENZIE LEE MD DR: SHELLEY/lorelei JOB#: [id number] / [id number]
== END | disposition home or self-care (01) ==
LOC: PNCL 09:22
PROVIDERS: ATTEND Anesthesiology
DX: M51.16 Intervertebral disc disorders with radiculopathy, lumbar region (principal); M48.061 Spinal stenosis, lumbar region without neurogenic claudication; Z88.0 Allergy status to penicillin; Z88.8 Allergy status to other drugs, medicaments and biological substances
CPT/HCPCS: 62323; J1030; J1040; Q9965

== ENCOUNTER → 2019-03-29 | Outpatient (CLI) | payer OTHER ==
[~2019-03-29] MED LIST changes: -IOHEXOL 180 MG/ML 10 ML VIAL. ONE; -methylPREDNISolone ACETATE 40 MG/ML VIAL. ONE; -methylPREDNISolone ACETATE 80 MG/ML VIAL. ONE
--- NOTE | 2019-03-29 19:26 | PAIN ---
DATE OF SERVICE: 03/29/2019 PROGRESS NOTE FOR PAIN CLINIC DIAGNOSES: Lumbar radiculopathy with lumbar degenerative disk disease, lumbar spinal stenosis. HISTORY OF PRESENT ILLNESS: The patient is a 58-year-old female who returns for followup status post lumbar epidural steroid injection x 1. The patient reports initially, she did very well with about 90% improvement for the first few days and about 75% improvement for the first 2 weeks. The patient reports about 50% improvement overall currently and has been with about almost 4 weeks since her injection. The patient reports still pain is returning now in the low back, right lower extremity, posterior gluteus, posterior thigh, posterior calf, radiating to the foot with numbness and tingling, burning, cramping, stabbing pain across the low back, aching and dull, sharp in the leg sometimes and tight in the back itself with a shooting pain in the leg, radiating, becoming more constant and more unbearable with time. The patient reports with weightbearing, standing, walking, changing positions, it is much worse and better with sitting or lying down. She has to spend most of her time in a recliner when the pain is at its worst and has over the past few days. The patient reports it awakens her from sleep about every 2-3 hours now. Initially, she was increasing distance walking, doing activities at home, traveling better, changing positions better, now it is becoming more closer to baseline. The patient reports it is a 10 on a scale of 10 at its worst over the past week, 10 on average, 8 at its least and is an 8 today. The patient reports no new motor or sensory deficits, no new bowel or bladder incontinence or other complaints. PHYSICAL EXAMINATION: VITAL SIGNS: The patient's blood pressure is 150/111, pulse 80, respirations 16, temperature 98.1 degrees Fahrenheit. Weight is 244 pounds. GENERAL: The patient is awake, alert, oriented, appropriate, very pleasant demeanor. HEENT: Head is normocephalic, atraumatic. Extraocular movements are intact and symmetrical. Oral cavity: Mucous membranes are moist and pink. Dentition is intact. NECK: Shows anterior throat supple without palpable lymphadenopathy noted. Swallow reflex is symmetrical. CHEST: Shows normal on inspection. Breath sounds are clear to auscultation bilaterally. HEART: Shows S1, S2 clear. No murmurs auscultated. ABDOMEN: Soft, nontender, nondistended. No palpable organomegaly is noted. No rebound or guarding demonstrated. BACK: Shows spine grossly in the midline. Normal appearing thoracic kyphosis and some minor flattening of lumbar lordotic curvature. Lumbar paraspinous muscle shows symmetrical on inspection, on palpation shows some moderate tenderness diffusely bilaterally throughout the upper, middle and lower distribution of paraspinous muscles. The patient has good rotational motion of lumbar spine, however, greater than 10 degrees right and left as well as extension greater than 10 degrees, forward flexion 45 degrees without difficulty or pain reported. EXTREMITIES: Lower extremities show deep tendon reflexes 1+ in the patellar and tendo calcaneus tendons are equal. Motor exam is approximately 4 on a scale of 5, but symmetrical with dorsiflexion, extension, quadriceps and hamstring flexion. Peripheral pulses are 1+ posterior tibial. No peripheral edema is noted. Options were discussed with the patient. The patient's old chart was reviewed as her current medication regimen updated. Current review of systems updated today as well. We will preauthorize the patient for a second lumbar epidural steroid injection today. She did very well for the first one, still with radicular pain at L5-S1 dermatomal distribution on the right side. We will plan for lumbar epidural steroid injection, translaminar approach at the L5-S1 level on her return. The patient, in the meantime, will continue doing strengthening and stretching exercises on her own and continue walking as tolerated. MAKENZIE LEE MD DR: SHELLEY/lorelei JOB#: [id number] / [id number]
== END ==
LOC: PNCL 09:00
PROVIDERS: ATTEND Anesthesiology
DX: M51.16 Intervertebral disc disorders with radiculopathy, lumbar region (principal); M48.061 Spinal stenosis, lumbar region without neurogenic claudication
CPT/HCPCS: G0463

== ENCOUNTER → 2019-04-12 | Outpatient (CLI) | payer OTHER ==
[~2019-04-12] MED LIST changes: +IOHEXOL 180 MG/ML 10 ML VIAL. ONE; +methylPREDNISolone ACETATE 40 MG/ML VIAL. ONE; +methylPREDNISolone ACETATE 80 MG/ML VIAL. ONE
--- NOTE | 2019-04-13 01:05 | PAIN ---
DATE OF SERVICE: 04/12/2019 DIAGNOSES: Lumbar radiculopathy with lumbar spinal stenosis, lumbar degenerative disk disease. HISTORY OF PRESENT ILLNESS: The patient is a 58-year-old female who returns for followup status post lumbar epidural steroid injection x 1. The patient reports 100% improvement for the first 3 days, then about 50% improvement after that. The pain has returned now over the low back and right leg, posterior gluteus, posterior thigh, posterior calf, radiating described as tingling, aching, sharp, dull, tied across the low back, shooting in the right leg becoming more constant, more severe with walking, standing, changing positions. The patient reports it as 9 on a scale of 10 at all times, worse average and at its least over the past week and her groin pain on the right that is becoming more noticeable as well. The patient reports no new motor or sensory deficits, no new bowel or bladder incontinence or other complaints. She is still having difficulty sleeping and is tossing and turning most of the night because of the pain. The patient reports no new motor or sensory deficits, no bowel or bladder incontinence. PHYSICAL EXAMINATION: VITAL SIGNS: The patient's blood pressure 158/103, pulse 101, respirations are 16, temperature 97.9 degrees Fahrenheit, height 5 feet 6 inches, weight is 236 pounds. GENERAL: The patient is awake, alert, oriented, appropriate, very pleasant demeanor. HEENT: Head is normocephalic, atraumatic. Extraocular muscles are intact and symmetrical. Oral cavity: Mucous membranes are moist and pink. Dentition intact. NECK: Shows anterior throat supple without palpable lymphadenopathy noted. Swallow reflex is symmetrical. CHEST: Shows normal on inspection. Breath sounds clear to auscultation bilaterally. HEART: Shows S1, S2 clear. No murmurs auscultated. ABDOMEN: Obese, soft, nontender, nondistended. No palpable organomegaly is noted. No rebound or guarding demonstrated. BACK: The patient's back shows spine grossly in the midline. Normal appearing thoracic kyphosis. Some slight flattening of lumbar lordotic curvature. Lumbar paraspinous muscle shows symmetrical on inspection, on palpation shows some moderate tenderness diffusely, but without significant radiation. The patient has good rotational motion of lumbar spine, both laterally as well as extension and flexion without difficulty. EXTREMITIES: Lower extremities show deep tendon reflexes 1+ in the patellar and tendo-calcaneus tendons are equal. Motor exam is approximately 4 on a scale of 5 with symmetrical dorsiflexion, extension, quadriceps and hamstring flexion equal. Peripheral pulses are 1+ posterior tibial. No peripheral edema is noted bilaterally. Options were discussed with the patient. The patient's old chart was reviewed as her current medication regimen updated. Current review of systems updated today. We will proceed with a second lumbar epidural steroid injection today with fluoroscopic guidance. Risks were again discussed including, but not limited to bleeding, infection, possibility of epidural hematoma, subsequent neurologic compromise, dural puncture, headaches, spinal cord and/or nerve damage, side effects of steroid medication and poor results regarding pain control. The patient understands and wished to proceed. The patient will return to clinic in approximately 2 weeks for followup, was counseled as to return appointment, activity level and side effects to be aware of. DIAGNOSES: Lumbar radiculopathy with lumbar degenerative disk disease and lumbar spinal stenosis. PROCEDURE: Lumbar epidural steroid injection, translaminar approach L5-S1 level using C-arm fluoroscopic guidance under sterile prep and drape using local anesthetic. MEDICATION INJECTED: A total of 120 mg Depo-Medrol plus 10 mL of preservative-free normal saline and 2 mL of contrast. CONDITION AT DISCHARGE: Stable. The patient tolerated procedure well, had no complications. PLAN: Discussed with the patient, she has some clinical depressions and is requesting antidepressants. I encouraged her to discuss this with her primary physician. She reports she will make an appointment soon to discuss this with her primary physician. MAKENZIE LEE MD DR: SHELLEY/lorelei JOB#: [id number] / [id number]
== END ==
LOC: PNCL 10:11
PROVIDERS: ATTEND Anesthesiology
DX: M51.16 Intervertebral disc disorders with radiculopathy, lumbar region (principal); M48.061 Spinal stenosis, lumbar region without neurogenic claudication
CPT/HCPCS: 62323; J1030; J1040; Q9965

== ENCOUNTER → 2020-01-11 | Outpatient (CLI) | payer OTHER ==
[~2020-01-11] MED LIST changes: -IOHEXOL 180 MG/ML 10 ML VIAL. ONE; +OMEP40CA45 PO; -OMEP40CA5 PO; -methylPREDNISolone ACETATE 40 MG/ML VIAL. ONE; -methylPREDNISolone ACETATE 80 MG/ML VIAL. ONE
--- NOTE | 2020-01-11 11:15 | KCIC ---
Right lower extremity venous doppler ultrasound History: Right lower extremity swelling and pain, history of previous treatment for varicose veins Comparison: None Findings: Multiple grayscale, color, and duplex spectral analysis sonographic images were acquired of the right lower extremity veins to evaluate for the presence of DVT. There is normal phasicity. Normal compression, color-flow, and augmentation is demonstrated from the right common femoral to the popliteal veins. There is normal color flow of the proximal greater saphenous and profunda femoris veins. There is normal color flow of segments of the calf veins. In the medial right proximal calf region, there is occlusive echogenicity in superficial varicosities at site of pain. Impression: 1. There is no evidence of deep venous thrombosis from the right common femoral to the popliteal veins. 2. There is evidence of superficial thrombophlebitis at site of pain of the medial right proximal calf region. Electronically signed by: Matthew King MD (01/11/2020 11:12 AM) [facility]
== END | disposition home or self-care (01) ==
LOC: KCIC US 10:08
PROVIDERS: ATTEND Family Medicine
DX: I80.01 Phlebitis and thrombophlebitis of superficial vessels of right lower extremity (principal)
CPT/HCPCS: 93971

== ENCOUNTER 2020-02-11 07:23 | Emergency (ER) | payer OTHER ==
[~2020-02-11] VITALS: Ht 170.2 cm; Wt 117.0 kg
--- NOTE | 2020-02-11 08:16 | PHYS DOC ---
Past Medical History Past Medical History: COPD, GERD, Hypertension, Other Additional Past Medical Histor: ULCERS, varicose veins, blood clots in june veins, chronic hip pain Past Surgical History: Tubal ligation, Other Additional Past Surgical Histo: varicose veins Smoking Status: Current Every Day Smoker Alcohol Use: None Drug Use: None General Adult EDM: Chief Complaint: GROIN PAIN HPI: HPI: Patient is a 59 year old female who presented to ER today for evaluation of right hip pain, right groin pain that been going on for several months, right hip pain over 4 months, progressive getting worse. Symptoms had been worse over the last week. Patient was evaluated by her family doctor last month, treated venous Doppler of the lower extremities, shown no DVT. It showed that she has superficial thrombophlebitis on the right medial proximal calf region. Patient continues to have pain, so she went to see her doctor last week, x-ray her right hip was done but no result available yet. Patient is scheduled to have a MRI done of her pelvic and right hip tomorrow. Patient is on [place] right now for pain . Patient decided come to the ER today because she is in so much pain whenever she walks. Patient denies any chest pain or any trouble breathing. Patient has been walking with a walker at home, hurt worse to put any weight on right hip. Patient denies any injury. Review of Systems: Review of Systems: Constitutional: Denies fever or chills. [] Eyes: Denies change in visual acuity. [] HENT: Denies nasal congestion or sore throat. [] Respiratory: Denies cough or shortness of breath. [] Cardiovascular: Denies chest pain or edema. [] GI: Denies abdominal pain, nausea, vomiting, bloody stools or diarrhea. [] : Denies dysuria. [] Musculoskeletal: Denies back pain, Positive for right hip pain. Integument: Denies rash. [] Neurologic: Denies headache, focal weakness or sensory changes. [] Endocrine: Denies polyuria or polydipsia. [] Lymphatic: Denies swollen glands. [] Psychiatric: Denies depression or anxiety. [] Heart Score: Risk Factors: Risk Factors: DM, Current or recent (<one month) smoker, HTN, HLP, family history of CAD, obesity. Risk Scores: Score 0 - 3: 2.5% MACE over next 6 weeks - Discharge Home Score 4 - 6: 20.3% MACE over next 6 weeks - Admit for Clinical Observation Score 7 - 10: 72.7% MACE over next 6 weeks - Early Invasive Strategies Current Medications: Current Medications Medications (Trade) Dose Ordered Sig/Ralph Start Time Stop Time Status Last Admin Dose Admin Ketorolac Tromethamine (Toradol Im) 60 mg 1X ONCE 02/11/20 08:30 02/11/20 08:31 Morphine Sulfate (Morphine Sulfate) 4 mg 1X ONCE 02/11/20 08:15 02/11/20 08:16 UNV Allergies: Allergies: Allergies Coded Allergies Type Severity Reaction Last Updated Verified azithromycin Allergy Severe swelling, hives, throat swelling 02/11/20 Yes Penicillins Allergy Intermediate Hives 02/11/20 Yes Physical Exam: PE: Constitutional: Well developed, well nourished, no acute distress, non-toxic ap pearance. [] HENT: Normocephalic, atraumatic, bilateral external ears normal, oropharynx moist, no oral exudates, nose normal. [] Eyes: PERRLA, EOMI, conjunctiva normal, no discharge. [] Neck: Normal range of motion, no tenderness, supple, no stridor. [] Cardiovascular:Heart rate regular rhythm, no murmur [] Lungs & Thorax: Bilateral breath sounds clear to auscultation [] Abdomen: Bowel sounds normal, soft, no tenderness, no masses, no pulsatile masses. [] Skin: Warm, dry, no erythema, no rash. [] Back: No tenderness, no CVA tenderness. [] Extremities: Right hip is tender to palpation, no right lower extremity swelling, no erythema. Patient has diffuse varicose veins. There is strong dorsalis pedis pulse. Neurologic: Alert and oriented X 3, normal motor function, normal sensory functi on, no focal deficits noted. [] Psychologic: Affect normal, judgement normal, mood normal. [] Current Patient Data: Vital Signs: Vital Signs Date Time Temp Pulse Resp B/P (MAP) Pulse Ox O2 Delivery O2 Flow Rate FiO2 02/11/20 07:30 98.1 92 20 154/82 (106) 94 Room Air 98.1 EKG: EKG: [] Radiology/Procedures: Radiology/Procedures: [][facility] [address] [place] [address] IMAGING REPORT Signed PATIENT: ROJAS NESBITT ACCOUNT: [id number] : 1960 LOCATION: ER AGE: 59 SEX: F EXAM STATUS: REG ER ORD. PHYSICIAN: ANOOP TERESA DO REASON: RIGHT HIP PAIN, RIGHT PROXIMAL FEMUR PAIN,NOT ABLE TO WALK PROCEDURE: CT LOWER EXTREMITY WO RIGHT EXAM: CT right femur without IV contrast INDICATION: Right hip pain and right proximal femur pain with inability to walk. TECHNIQUE: Helical CT of the right femur was performed without IV contrast at 3 mm slice thickness and reviewed in multiplanar reformats. All CT scans performed at this facility utilize dose optimization techniques as appropriate to the exam, including the following: Automated exposure control and adjustment of the mA and/or KV according to patient size (this includes techniques or standardized protocols for targeted exams where dose is indication/reason for exam). COMPARISON: None FINDINGS: The right femur is well mineralized and shows no evidence of fracture or dislocation. Visualized right hip shows sclerosis surrounding lucency across the right acetabulum consistent with a healing fracture. IMPRESSION: 1. Intact right femur. 2. Healing right acetabular fracture EXAM: CT Pelvis without IV contrast INDICATION: Right-sided pelvic pain for over a month, progressively worse. TECHNIQUE: Multi-detector row images were acquired from the iliac crest through the lesser trochanters without the use of IV contrast. Sagittal and coronal images were acquired from the transaxial data. All CT scans performed at this facility utilize dose optimization techniques as appropriate to the exam, including the following: Automated exposure control and adjustment of the mA and/or KV according to patient size (this includes techniques or standardized protocols for targeted exams where dose is indication/reason for exam). ORAL CONTRAST: None COMPARISON: Right femur CT same day, abdomen pelvis CT with IV contrast 08/22/2017. FINDINGS: The absence of IV contrast limits evaluation of soft tissue pathology. OSSEOUS:A sagittally oriented nondisplaced healing fracture of the right acetabulum is present. This is new since the last CT exam. Bone mineralization is otherwise normal. No soft tissue lesion or aggressive appearing osseous abnormality is noted. BLADDER: Unremarkable REPRODUCTIVE ORGANS: Unremarkable BOWEL: Visualized bowel shows extensive colonic diverticuli without CT findings of acute diverticulitis.. MESENTERY/PERITONEUM/RETROPERITONEUM: Unremarkable VASCULAR: Unremarkable LYMPH NODES: No adenopathy SOFT TISSUES: Unremarkable IMPRESSION: Healing right acetabular fracture. Otherwise no acute findings on noncontrast pelvis CT. Electronically signed by: Rajinder Roman MD (02/11/2020 8:35 AM) [id number] DICTATED and SIGNED BY: RAJINDER ROMAN MD DATE: 02/11/20 08 Course & Med Decision Making: Course & Med Decision Making Pertinent Labs and Imaging studies reviewed. (See chart for details) Discussed with Dr. Berrios, ORTHOPEDIC SURGEON [employer] ENGINEER, recommended OUTPATIENT MRI, will follow up with patient next week. Patient is a 59-year-old female who was evaluated in ER due to right hip pain, CT scan of her hip and her femur shown healing right acetabular fracture. Patient had a walker at home, she has an MRI of her hip scheduled tomorrow. Patient will be discharged home, she will have MRI tomorrow, call the orthopedic doctor Dr. Berrios clinic for follow-up this week. Dragon Disclaimer: Dragon Disclaimer: This electronic medical record was generated, in whole or in part, using a voice recognition dictation system. Departure Departure Impression: Primary Impression: Pain of right hip Disposition: 01 HOME, SELF-CARE Condition: STABLE Referrals: FINA LARA MD (PCP) NADINE BERRIOS II, MD please have MRI of your hip tomorrow. Please call Dr. Berrios, orthopedic surgeon tomorrow for follow up in 4-5 days Patient Instructions: Hip Pain ANOOP TERESA DO February 11, 2020 08:16
[2020-02-11] MEDS ORDERED: MORPHINE SULFATE 4 MG/ML VIAL. IM ONE (08:30)
[2020-02-11] MEDS ORDERED: KETOROLAC 60 MG/2 ML VIAL. IM ONE (08:30)
--- NOTE | 2020-02-11 08:38 | RAD ---
EXAM: CT right femur without IV contrast INDICATION: Right hip pain and right proximal femur pain with inability to walk. TECHNIQUE: Helical CT of the right femur was performed without IV contrast at 3 mm slice thickness and reviewed in multiplanar reformats. All CT scans performed at this facility utilize dose optimization techniques as appropriate to the exam, including the following: Automated exposure control and adjustment of the mA and/or KV according to patient size (this includes techniques or standardized protocols for targeted exams where dose is indication/reason for exam). COMPARISON: None FINDINGS: The right femur is well mineralized and shows no evidence of fracture or dislocation. Visualized right hip shows sclerosis surrounding lucency across the right acetabulum consistent with a healing fracture. IMPRESSION: 1. Intact right femur. 2. Healing right acetabular fracture EXAM: CT Pelvis without IV contrast INDICATION: Right-sided pelvic pain for over a month, progressively worse. TECHNIQUE: Multi-detector row images were acquired from the iliac crest through the lesser trochanters without the use of IV contrast. Sagittal and coronal images were acquired from the transaxial data. All CT scans performed at this facility utilize dose optimization techniques as appropriate to the exam, including the following: Automated exposure control and adjustment of the mA and/or KV according to patient size (this includes techniques or standardized protocols for targeted exams where dose is indication/reason for exam). ORAL CONTRAST: None COMPARISON: Right femur CT same day, abdomen pelvis CT with IV contrast 08/22/2017. FINDINGS: The absence of IV contrast limits evaluation of soft tissue pathology. OSSEOUS:A sagittally oriented nondisplaced healing fracture of the right acetabulum is present. This is new since the last CT exam. Bone mineralization is otherwise normal. No soft tissue lesion or aggressive appearing osseous abnormality is noted. BLADDER: Unremarkable REPRODUCTIVE ORGANS: Unremarkable BOWEL: Visualized bowel shows extensive colonic diverticuli without CT findings of acute diverticulitis.. MESENTERY/PERITONEUM/RETROPERITONEUM: Unremarkable VASCULAR: Unremarkable LYMPH NODES: No adenopathy SOFT TISSUES: Unremarkable IMPRESSION: Healing right acetabular fracture. Otherwise no acute findings on noncontrast pelvis CT. Electronically signed by: Amita Roman MD (02/11/2020 8:35 AM) [id number]
[2020-02-11 09:00] VITALS: BP 141/77
== END 2020-02-11 09:27 | disposition home or self-care (01) ==
LOC: ER 07:23
DX: G89.29 Other chronic pain (principal); M25.551 Pain in right hip; R10.31 Right lower quadrant pain; J44.9 Chronic obstructive pulmonary disease, unspecified; K21.9 Gastro-esophageal reflux disease without esophagitis; I10 Essential (primary) hypertension; F17.200 Nicotine dependence, unspecified, uncomplicated; Z98.51 Tubal ligation status; Z98.890 Other specified postprocedural states; Z88.1 Allergy status to other antibiotic agents; Z88.0 Allergy status to penicillin
CPT/HCPCS: 72192; 73700; 96372; 99285; J1885; J2270

== ENCOUNTER → 2020-03-07 | Outpatient (CLI) | payer OTHER ==
[2020-02-11 09:00] VITALS: BP 141/77
--- NOTE | 2020-03-07 09:38 | RAD ---
MRI Lumbar Spine without contrast History: Lumbar radiculopathy, low back pain, bilateral radiculopathy for 3 months Technique: Multiplanar, multi sequential noncontrast MR imaging was performed of the lumbar spine. Comparison: November 15, 2018 Findings: There is some motion. Lumbar vertebral body stature and AP alignment are maintained. There is minimal edema of the anterior superior corner of T11 likely reactive/degenerative in etiology. There is again mild disc desiccation L5-S1 and to a lesser degree L3-4, intervertebral disc spaces relatively preserved. Conus terminates near L1-2. There is very mild amorphous edema associated with the superior right L5 facet articular process probably reactive/degenerative in etiology. L1-L2: Spinal canal and neural foramina are adequate. L2-L3: Spinal canal and neural foramina are adequate. L3-L4: There is mild buckling of the ligamentum flavum and mild facet degenerative change, in some fluid in the left facet articulation. There is minimal disc osteophyte complex greater in the inferior neural foramina, right greater than left. There is mild inferior neural foramina compromise greater on the right, disc osteophyte complex near the undersurface of exiting right L3 nerve root in the distal neural foramen. There is very mild narrowing of the far right lateral recess from posteriorly. L4-L5: There is [id number] buckling of the ligamentum flavum and mild facet degenerative change, minimal fluid in the left facet articulation decreased in interval. There is minimal disc osteophyte complex, somewhat more eccentric to the inferior right neural foramen, also shallow protrusion in the distal right neural foramen and extraforaminal region as seen previously near the undersurface of the exiting right L4 nerve root in the distal neural foramen and proximal extraforaminal region. There is [id number] narrowing of the more distal right neural foramen, left neural foramen overall adequate. There is minimal narrowing of the far right lateral recess from posteriorly as seen previously. L5-S1: There is mild to moderate facet degenerative change. Spinal canal is adequate. There is minimal narrowing of the right neural foramen greater distally by disc osteophyte complex near the undersurface of the exiting right L5 nerve root as seen previously, left neural foramen not significantly narrowed. Impression: 1. There is no new significant lumbar spinal stenosis, minimal narrowing of the far right lateral recesses at L3-4 and L4-5. There is mild to moderate narrowing of the right L4-5 neural foramen, other minimal neural foramina compromise bilaterally at L3-4 and on the right at L5-S1. Electronically signed by: Matthew King MD (03/07/2020 9:35 AM) [id number]
== END | disposition home or self-care (01) ==
LOC: MRI 08:26
PROVIDERS: ATTEND Orthopaedic Surgery
DX: S32.434A Nondisplaced fracture of anterior column [iliopubic] of right acetabulum, initial encounter for closed fracture (principal); M51.16 Intervertebral disc disorders with radiculopathy, lumbar region; M25.78 Osteophyte, vertebrae; M48.07 Spinal stenosis, lumbosacral region; X58.XXXA Exposure to other specified factors, initial encounter; Y93.89 Activity, other specified; Y92.89 Other specified places as the place of occurrence of the external cause; Y99.8 Other external cause status
CPT/HCPCS: 72148

== ENCOUNTER → 2020-03-21 | Outpatient (CLI) | payer BC, OTHER ==
--- NOTE | 2020-03-21 13:11 | KCIC ---
Bilateral digital screening mammograms: Reason for examination: Routine screening. Comparison is made to previous studies dated between 09/10/2017 and 09/26/2011. Interpretation was made with the benefit of CAD. The skin and nipples show no abnormalities. No abnormal axillary lymph nodes are seen. The breast parenchyma shows scattered fibroglandular density. (Breast density: Category B.) There are no dominant masses, suspicious calcifications or architectural distortions. Some benign calcifications are present. Impression: No evidence of malignancy. Recommend routine screening. BI-RADS category 2: Benign "Our facility is accredited by the [employer] Mammography Program." This patient's information has been entered into a reminder system for the patient to be notified with the results of her examination and a target date for the next mammogram. Electronically signed by: Stacy Juárez MD (03/21/2020 1:08 PM) [id number]
== END | disposition home or self-care (01) ==
LOC: KCIC MAMMO 10:59
PROVIDERS: ATTEND Family Medicine
DX: Z12.31 Encounter for screening mammogram for malignant neoplasm of breast (principal)
CPT/HCPCS: 77067

== ENCOUNTER → 2020-04-30 | Outpatient (CLI) | payer BC ==
--- NOTE | 2020-04-30 09:38 | KCIC ---
Examination: MRI of the right knee without contrast HISTORY: History of right knee pain, injury COMPARISON: None TECHNIQUE: Multiplanar, multisequence MR imaging of the right knee were performed without contrast. FINDINGS: Increased T2 signal identified in the anterior cruciate ligament. Majority of the fibers appear continuous. Posterior cruciate ligament appears intact. The medial meniscus appears intact. There is increased signal identified in the body of the lateral meniscus extending anteriorly likely tear of the lateral meniscus. The medial collateral ligament is intact. Lateral collateral ligamentous complex including the fibular collateral ligament, biceps femoris tendon, popliteus tendon appear intact. The extensor mechanism is intact. Small knee joint effusion identified. There is deep fissuring of cartilage identified in the bilateral femoral compartment, weightbearing portion of the medial and lateral compartment. Moderate-sized leaking popliteal cyst. The extensor mechanism is intact. Moderate joint space loss identified in the medial, lateral, patellofemoral compartments. IMPRESSION: 1. Increased signal identified in the body of the lateral meniscus extending anteriorly likely tear of the lateral meniscus. 2. Increased T2 signal identified in the anterior cruciate ligament, nonspecific could be partial tear or mucoid degeneration. Majority of the fibers appear continuous. 3. Grade II chondromalacia medial, lateral, patellofemoral compartments. 4. Moderate leaking popliteal cyst. Electronically signed by: Eliel Lynch MD (04/30/2020 9:34 AM) [id number]
== END ==
LOC: KCIC MRI 07:57
PROVIDERS: ATTEND Orthopaedic Surgery
DX: M71.21 Synovial cyst of popliteal space [Baker], right knee (principal); M94.29 Chondromalacia, multiple sites; M25.461 Effusion, right knee
CPT/HCPCS: 73721

== ENCOUNTER → 2021-03-24 | Outpatient (CLI) | payer BC ==
[~2021-03-24] MED LIST changes: -CLIN300C8 PO; +CLIN300C9 PO; -OMEP40CA45 PO; +OMEP40CA7 PO; -RAMI2.5C2 PO; +RAMI2.5C41 PO
--- NOTE | 2021-03-24 09:08 | RAD ---
PROCEDURE: MG BILAT SCREEN+SOPHIA HISTORY: The patient is 60 years old and is seen for Reason: SCREENING MAMMOGRAM / Spl. Instructions: / History: . COMPARISON: March 21, 2020 TECHNIQUE: CC and MLO views of both breasts were obtained. Images were processed by the [employer] computer-aided detection system. DENSITY: There are scattered fibroglandular densities. FINDINGS: No developing mass, suspicious calcifications or architectural distortion. Benign-appear ing calcifications, unchanged. IMPRESSION: Negative. No evidence of malignancy. Recommend annual screening mammograms per [employer] guidelines. She will be due in one year. BI-RADS category 2 Benign Patient entered into a reminder system for annual screening mammogram. Electronically signed by: Geovanny Cleveland DO (03/24/2021 9:06 AM) [id number]
== END ==
LOC: MAMMO 08:09
PROVIDERS: ATTEND Family Medicine
DX: Z12.31 Encounter for screening mammogram for malignant neoplasm of breast (principal)
CPT/HCPCS: 77063; 77067

== ENCOUNTER 2022-01-23 16:51 | Emergency (ER) | payer BC ==
[~2022-01-23] VITALS: Ht 172.7 cm; Wt 118.2 kg
[~2022-01-23 16:51] MED LIST changes: +CLIN-94 PO; -CLIN300C9 PO; +CYCL10TA19 PO; -CYCL10TA2 PO
[2022-01-23] MEDS ORDERED: HYDROcodone/APAP 5/325MG 1 TAB TABLET PO ONE (19:30)
--- NOTE | 2022-01-23 19:53 | RAD ---
Right ankle 3 views, right tibia and fibula AP and lateral views, right foot 3 views. HISTORY: Pain, swelling Right tibia and fibula 2 views were taken of the right tibia and fibula. There is not evidence of an acute fracture or osseo us abnormality. Right ankle 3 views were taken of the right ankle. There is not evidence of an ankle fracture. There is soft tiss ue swelling. Right foot 3 views were taken of the right foot. There is a transverse fracture through the proximal right fifth metatarsal. There is an old healed fracture the distal right fifth metatarsal. There is flattening o f the head of the second metatarsal suggesting ischemic necrosis or an old injury. There is arthritis at the joint between the navicular and cuneiforms. There is arthritis at the tarsal metatarsal joint s. IMPRESSION: 1. No acute fracture right tibia or fibula. 2. No acute fracture right ankle. 3. Nondisplaced transverse fracture through right fifth metatarsal. 4. Arthritis tarsal metatarsal joints right foot. Electronically signed by: David Schofield MD (01/23/2022 7:51 PM) [facility]
[2022-01-23] MEDS ORDERED: HYDR-2761 PO (20:22)
--- NOTE | 2022-01-23 20:24 | PHYS DOC ---
Past Medical History Past Medical History: COPD, GERD, Hypertension, Other Additional Past Medical Histor: ULCERS, varicose veins, blood clots in june veins, chronic hip pain Past Surgical History: Tubal ligation, Other Additional Past Surgical Histo: varicose veins Smoking Status: Current Every Day Smoker Alcohol Use: None Drug Use: None General Adult EDM: Chief Complaint: FOOT INJURY PAIN HPI: HPI: Patient is a 61 year old female who presents with 5 days ago she was walking and heard a loud pop in her right foot and started having pain. She then 2 days later pointed to her doctor's office and they did an x-ray. She states that it showed nothing was wrong. She states then she was walking again her another laptop. She states she just keeps getting more pain and more swelling. She states at times she has some tingling in the foot. She states most the pain is from the right fifth toe down the lateral foot and slightly into the lateral ankle area. Patient states that she also on Wednesday went and saw Dr. Doss die designer and he did steroid shots but that are not helped her pain. Patient rates her pain a 10 out of 10. Patient has a history of COPD, hypertension, GERD, ulcer, varicose veins, chronic hip pain, tubal ligation, smoker. She does have some scant bruising area to the foot but she states that is normal for her foot she has varicose veins. She denies weakness in the extremity, skin color change or coolness to the extremity. She has been walking on the extremity and bearing weight. Review of Systems: Review of Systems: Constitutional: Denies fever or chills. [] Eyes: Denies change in visual acuity. [] HENT: Denies nasal congestion or sore throat. [] Respiratory: Denies cough or shortness of breath. [] Cardiovascular: Denies chest pain or +Right foot edema. [] GI: Denies abdominal pain, nausea, vomiting, bloody stools or diarrhea. [] : Denies dysuria. [] Musculoskeletal: Denies back pain or +Right foot joint pain. +Right ankle pain.[] Integument: Denies rash. [] Neurologic: Denies headache, focal weakness or sensory changes. [] Endocrine: Denies polyuria or polydipsia. [] Lymphatic: Denies swollen glands. [] Psychiatric: Denies depression or anxiety. [] Heart Score: C/O Chest Pain: No Current Medications: Current Medications Medications (Trade) Dose Ordered Sig/Ralph Start Time Stop Time Status Last Admin Dose Admin Acetaminophen/ Hydrocodone Bitart (Lortab 5/325) 1 tab 1X ONCE 01/23/22 19:30 01/23/22 19:31 DC Allergies: Allergies: Allergies Coded Allergies Type Severity Reaction Last Updated Verified azithromycin Allergy Severe swelling, hives, throat swelling 02/11/20 Yes Penicillins Allergy Intermediate Hives 02/11/20 Yes Physical Exam: PE: Constitutional: Well developed, well nourished, no acute distress, non-toxic appearance. [] HENT: Normocephalic, atraumatic, bilateral external ears normal, oropharynx moist, no oral exudates, nose normal. [] Eyes: PERRLA, EOMI, conjunctiva normal, no discharge. [] Neck: Normal range of motion, no tenderness, supple, no stridor. [] Cardiovascular:Heart rate regular rhythm, no murmur [] Lungs & Thorax: Bilateral breath sounds clear to auscultation [] Abdomen: Bowel sounds normal, soft, no tenderness, no masses, no pulsatile masses. [] Skin: Warm, dry, no erythema, no rash. [] Back: No tenderness, no CVA tenderness. [] Extremities: Right 5th toe, lateral foot, lateral ankle tenderness, no cyanosis, no clubbing, ROM intact but painful, 2+ edema. [] Neurologic: Alert and oriented X 3, normal motor function, normal sensory function, no focal deficits noted. [] Psychologic: Affect normal, judgement normal, mood normal. [] EKG: EKG: [] Radiology/Procedures: Radiology/Procedures: [] Impression: [facility] [address] [place] [address] IMAGING REPORT Signed PATIENT: ROJAS NESBITT ACCOUNT: [id number] : 1960 LOCATION: ER AGE: 61 SEX: F EXAM STATUS: REG ER ORD. PHYSICIAN: MAYLIN BELTRAN CELL RELINER REASON: pain, heard loud pop, swelling PROCEDURE: TIBIA FIBULA RIGHT Right ankle 3 views, right tibia and fibula AP and lateral views, right foot 3 views. HISTORY: Pain, swelling Right tibia and fibula 2 views were taken of the right tibia and fibula. There is not evidence of an acute fracture or osseous abnormality. Right ankle 3 views were taken of the right ankle. There is not evidence of an ankle fracture. There is soft tissue swelling. Right foot 3 views were taken of the right foot. There is a transverse fracture through the proximal right fifth metatarsal. There is an old healed fracture the distal right fifth metatarsal. There is flattening of the head of the second metatarsal suggesting ischemic necrosis or an old injury. There is arthritis at the joint between the navicular and cuneiforms. There is arthritis at the tarsal m etatarsal joints. IMPRESSION: 1. No acute fracture right tibia or fibula. 2. No acute fracture right ankle. 3. Nondisplaced transverse fracture through right fifth metatarsal. 4. Arthritis tarsal metatarsal joints right foot. Electronically signed by: David Schofield MD (01/23/2022 7:51 PM) [facility] DICTATED and SIGNED BY: DAVID SCHOFIELD MD DATE: 01/23/221947 Course & Med Decision Making: Course & Med Decision Making Pertinent Labs and Imaging studies reviewed. (See chart for details) See HPI. Alert and oriented x4. Ambulatory with a steady gait. Speaks in full clear sentences. Pedal pulses strong present. Cap refill less than 2 seconds. She can wiggle her toes and move fully at the ankle. Patient does not react to the palpation of the foot but she states that there is tenderness along the lateral right foot from the fifth toe to lateral ankle area. X-ray shows a fracture at the right fifth metatarsal. Patient will be placed in a posterior short leg cast follow-up with orthopedics. Patient to be nonweight bearing. Splint assessment: Neurovascularly intact post splint replacement with good fit. Patient's extremity symptoms have stabilized well they have been evaluated in the department and are appropriate for outpatient follow-up. No evidence of compartment syndrome, neurologic injury, vascular injury, open joint, open fracture, tendon laceration, or foreign body. [] Dragon Disclaimer: Dragon Disclaimer: This electronic medical record was generated, in whole or in part, using a voice recognition dictation system. Departure Departure Impression: Primary Impression: Metatarsal fracture Qualified Codes: S92.354A - Nondisplaced fracture of fifth metatarsal bone, right foot, initial encounter for closed fracture Disposition: HOME / SELF CARE / HOMELESS Condition: STABLE Referrals: FINA LARA MD (PCP) CIARA ALLRED Jr. DO Patient Instructions: Cast or Splint Care, Metatarsal Fracture, Undisplaced Additional Instructions: Follow-up with orthopedic this coming week. Remain nonweightbearing on that extremity. Use ice and elevation. Use crutches. Take medication as prescribed and with food. Members of these medications will make you sleepy so do not drive, drink alcohol, work or use heavy machinery. If pain becomes unbearable return emergency room. Scripts Hydrocodone Bit/Acetaminophen (HYDROCODONE-APAP 5-325 ) 1 Tab Tablet 1 TAB PO PRN Q6HRS PRN for PAIN, #24 TAB 0 Refills Prov: MAYLIN BELTRAN APRN 01/23/22 MAYLIN BELTRAN APRN Jan 23, 2022 20:24
[2022-01-23 20:52] VITALS: BP 149/85
== END 2022-01-23 21:19 | disposition home or self-care (01) ==
LOC: ER 16:51
DX: S92.354A Nondisplaced fracture of fifth metatarsal bone, right foot, initial encounter for closed fracture (principal); J44.9 Chronic obstructive pulmonary disease, unspecified; K21.9 Gastro-esophageal reflux disease without esophagitis; I10 Essential (primary) hypertension; F17.200 Nicotine dependence, unspecified, uncomplicated; Z88.0 Allergy status to penicillin; Z88.1 Allergy status to other antibiotic agents; X50.9XXA Other and unspecified overexertion or strenuous movements or postures, initial encounter; Y93.01 Activity, walking, marching and hiking; Y92.89 Other specified places as the place of occurrence of the external cause; Y99.8 Other external cause status
CPT/HCPCS: 29515; 73590; 73610; 73630; 99284